=== PATIENT | female | born 1960 | race Caucasian/White ===

== ENCOUNTER → 2016-12-14 | Outpatient (CLI) | payer BC ==
[~2016-12-14] MED LIST: LRT5 PO; LXPUNK; ONDA4TAB46 PO
--- NOTE | 2016-12-15 15:02 | MAMMOGRAPHY REPORT ---
BILATERAL DIGITAL SCREENING MAMMOGRAM WITH CAD: 12/14/2016 CLINICAL HISTORY: Routine screening. Patient has no complaints. TECHNIQUE: Current study was also evaluated with a Computer Aided Detection (CAD) system. Bilatera l CC and MLO views were obtained. COMPARISON: Comparison is made to exams dated: 09/08/2015 mammogram, 06/29/2014 mammogram, 06/13/2013 mammogram, 06/12/2012 mammogram, 06/07/2011 mammogram, and 06/06/2010 mammogram - [facility]. BREAST COMPOSITION: There are scattered areas of fibroglandular density in both breasts. FINDINGS: No suspicious masses, calcifications, or areas of architectural distortion are noted in e ither breast. There has been no significant interval change compared to prior exams. IMPRESSION: ACR BI-RADS CATEGORY 1: NEGATIVE There is no mammographic evidence of malignancy. A 1 year screening mammogram is recommended. The p atient will receive written notification of the results. Approximately 10% of breast cancers are not detected with mammography. A negative mammographic repor t should not delay biopsy if a clinically suggestive mass is present. Teresa Irizarry M.D. ah/:12/14/2016 16:10:39 Sheet Metal Erector: Kajal RUVALCABA([employer])(M), [facility] letter sent: Normal 1/2 BI-RADS Code: ACR BI-RADS Category 1: Negative
== END | disposition home or self-care (01) ==
LOC: C.MAMM 15:38
PROVIDERS: ATTEND Family Medicine
DX: Z12.31 Encounter for screening mammogram for malignant neoplasm of breast (principal)

== ENCOUNTER 2022-03-16 15:23 | Inpatient (IN) ==
[2022-03-16] MEDS ORDERED: ONDANSETRON INJ 2 MG/ML 2 ML VIAL IV STA ×3 (15:40→18:35)
[2022-03-16] MEDS ORDERED: MoRPHine SULFATE 4 MG/ML 1 ML CARP\\VIAL IV STA ×2 (15:40→17:47)
[2022-03-16] MEDS ORDERED: SODIUM CHLORIDE 0.9% 1000ML 1,000 ML IV STA (15:40)
--- NOTE | 2022-03-16 16:15 | XRay Report ---
XR chest 1V portable CLINICAL HISTORY: Chest Pain TECHNIQUE: Single frontal radiograph of the chest was obtained. Comparison: None available at the time of this dictation. FINDINGS: No lines and tubes are seen. The cardiomediastinal silhouette is normal. The lungs are clear. No evid ence of pleural effusion or pneumothorax. IMPRESSION: No acute chest disease. ACT 112: Negative or not required by law. Electronically signed by: Mitch Yung M.D. 03/16/2022 4:13 PM
[2022-03-16 17:13] LABS: Basophils # (auto) 0.11 K/uL (0-0.2); Basophils % (auto) 0.5 %; Eosinophils # (auto) 0.05 K/uL (0-0.50); Eosinophils % (auto) 0.2 %; Hemoglobin 13.8 g/dl (12.0-16.0); Immature Granulocytes # (auto) 0.16 K/uL (0.00-0.02); Immature Granulocytes % (auto) 0.7 %; Lymphocytes # (auto) 1.76 K/uL (1.2-3.4); Lymphocytes % (auto) 8.2 %; Mean Corpuscular Hemoglobin 28.6 pg (25.0-34.0); Mean Corpuscular Hgb Conc 34.5 g/dL (32.0-36.0); Mean Corpuscular Volume 82.8 fL (80.0-100.0); Mean Platelet Volume 10.1 fL (9.4-12.3); Monocytes # (auto) 1.32 K/uL (0.24-0.82); Monocytes % (auto) 6.1 %; Neutrophils # (auto) 18.18 K/uL (1.4-6.5); Neutrophils % (auto) 84.3 %; Platelet Count 334 K/uL (130-400); RDW Coefficient of Variation 12.4 % (11.5-14.5); RDW Standard Deviation 37.7 fL (36.4-46.3); Red Blood Count 4.83 M/uL (3.93-5.22); White Blood Count 21.58 K/ul (4.8-10.8)
--- NOTE | 2022-03-16 17:28 | CT Scan Report ---
CT abd pelvis wo con CLINICAL HISTORY: R flank pain TECHNIQUE: Helical axial images of the abdomen and pelvis were obtained. Automated dose lowering tech niques and/or adjustment according to patient size were utilized for this exam. This exam was perfor med without intravenous contrast. CT DOSE: 572.13 mGy.cm COMPARISON: None available at the time of this dictation. FINDINGS: Lower chest: No acute abnormality Liver: Ginger configuration of the liver is noted. No discrete masses are seen. Gallbladder and biliary tree: No calcified gallstones. Normal caliber wall. No intra- or extrahepatic biliary ductal dilation. Pancreas: Unremarkable, no focal lesions. Spleen: Unremarkable. Adrenals: Unremarkable. Kidneys and ureters: Mild right hydronephrosis is seen. There is a stone in the proximal right ureter measuring 3 mm. Bladder: Limited evaluation due to underdistention. Reproductive organs: Unremarkable. Bowel: Diverticulosis is seen without evidence of diverticulitis. The appendix is normal. Lymph nodes Retroperitoneal: Unremarkable. Pelvic: Unremarkable. Mesenteric: Unremarkable. Peritoneum: Normal. Vessels: Unremarkable. Abdominal wall: A fat-containing umbilical hernia is seen. Bones: Unremarkable. IMPRESSION: Obstructive stone in the right ureter with associated hydronephrosis/hydroureter. ACT 112: Negative or not required by law. Electronically signed by: Mitch Yung M.D. 03/16/2022 5:27 PM
[2022-03-16 17:37] LABS: Albumin Globulin Ratio 1.4 (0.9-2); Albumin Level 4.3 gm/dl (3.4-5.0); BUN Creatinine Ratio 21.6 (10-20); Bilirubin,Total 0.4 mg/dl (0.2-1.0); Calcium 9.6 mg/dl (8.5-10.1); Creatinine Clr Calc Pharmacy 62.5 ml/min; Est GFR (African American) 69.2 ml/min; Est GFR (Non-African American) 59.7 ml/min; Potassium 3.9 mmol/L (3.5-5.1); Total Protein 7.3 gm/dl (6.0-8.3); Troponin I High Sensitivity 3.9 pg/ml (0-14)
[2022-03-16] MEDS ORDERED: cefTRIAXone SODIUM 2,000 MG/70 ML BAG IV STA (18:11)
[2022-03-16] MEDS ORDERED: MoRPHine SULFATE 10 MG/ML CARP/VIAL IV STA (18:35)
[2022-03-16] MEDS ORDERED: KETOROLAC TROMETHAMINE 15 MG/ML VIAL IV ONE (18:35)
--- NOTE | 2022-03-16 18:35 | Emergency Department Note ---
Impression & Plan Ureteral stone with hydronephrosis, Flank Pain, Leukocytosis ED Provider Note NAME: LEXI KHAN AGE: 61 SEX: F : 1960 ARRIVES VIA: Walk-In INFORMANT: Patient ED PROVIDER(S): Rachid Kevin DO CHIEF COMPLAINT: right flank pain HPI: Patient is a 61-year-old female who presents to the ER for right flank pain. She had an hours worth of pain yesterday and it resolved. Pain started back up today and has been constant all day and is significantly worse. Pain is currently 5 out of 10 after morphine. She does have nausea and vomiting. No dysuria, urgency, or frequency. Pain is focal in the right back and has not moved to the abdomen/anterior aspect. Denies any other exacerbating or remitting factors. ROS: See above HPI for pertinent positives & negatives. A total of 10 systems reviewed and were otherwise negative. PAST MEDICAL HISTORY:See Below PAST SURGICAL HISTORY:See Below FAMILY HISTORY:See Below SOCIAL HISTORY:See Below HOME MEDICATIONS:See Below ALLERGIES:See Below VITALS:See Below PHYSICAL EXAMINATION: GENERAL: Sitting up in bed, alert, Diaphoretic, uncomfortable, holding right flank EYE EXAM: normal conjunctiva. OROPHARYNX:Dry mucous membranes NECK: supple, no nuchal rigidity, no adenopathy, non-tender LUNGS: Clear to auscultation. Normal chest wall mechanics HEART: no murmurs, S1 normal and S2 normal ABDOMEN: abdomen soft, non-tender, normo-active bowel sounds, no masses, no rebound or guarding. BACK: Back is symmetrical on inspection and there is no deformity, no midline tenderness, no CVA tenderness. UPPER EXTREMITIES: upper extremities are grossly normal. LOWER EXTREMITIES: No pitting edema. NEURO EXAM: Normal sensorium, cranial nerves II-XII grossly intact, normal speech, no gross weakness of arms, no gross weakness of legs. MEDICAL DECISION MAKING: Is a 61-year-old female who presents ER for above-stated complaint.IV was established blood work was obtained. Labs show leukocytosis 21,000. No significant anemia. BMP with a CO2 of 19. Glucose slightly up at 120. LFTs we re unremarkable. Troponin was negative. Lipase normal. UA was clean with exception of epithelial cells. COVID was negative. CT abdomen pelvis does show hydronephrosis with a renal stone present. She was given multiple doses of IV narcotics was still having persistent pain was intermittently becoming hypoxic with narcotics. Discussed with the patient in regards to observation for pain control patient was agreeable. She was given IV antibiotics initially due to the white count right flank pain prior to the result of the UA. Triage Nursing notes reviewed. Limited review of prior medical records performed Vital Signs: reviewed and remarkable for no significant abnormalities Differential diagnosis: Differential diagnoses includes but is not limited to gastritis, peptic ulcer disease, GERD, gallbladder disease, pancreatitis, small bowel obstruction, acute coronary syndrome, pericarditis, ischemic bowel, irritable bowel disease, irr itable bowel syndrome, appendicitis, diverticulitis, malignancy, hernia, urinary tract infection, torsion, /ectopic (if female), perforation, trauma, infectious. ER treatment provided: See below Diagnostics interpreted by me: ECG: Sinus rhythm rate of 77 Normal axis No PVCs QTC 466 Cardiac Monitoring: An order was placed for continuous cardiac monitoring. The monitor shows a rate of 80 with sinus rhythm. Laboratory studies: As stated above and show below. Imaging studies: CT abdomen pelvis shows hydronephrosis with kidney stone Consultation(s): [facility] Procedures[facility] none Critical Care: None Past Med/Surg History Social History Smoking Status: Never smoker Preferred Language: [place] Islander Feels Safe at Home: Yes Allergies Allergies Allergy/AdvReac Type Severity Reaction Status Date / Time aspirin AdvReac Intermediate SHAKEY Verified 03/16/22 18:41 Home Meds Home Medications Medication Instructions Recorded Confirmed cholecalciferol (vitamin D3) 50 50 mcg PO DAILY 03/16/22 03/16/22 mcg (2,000 unit) capsule (Vitamin D3) lisinopril 10 mg tablet 10 mg PO DAILY 03/16/22 03/16/22 Results & Data (ED) Vital Signs Vital Signs - 24 hr 03/16/22 15:39 03/16/22 19:03 Temperature 36.6 C Temperature Source Temporal Artery Scan Pulse Rate 88 Pulse Rate [Right Finger] 80 Pulse Rhythm Regular Pulse Strength Normal Respiratory Rate 20 20 Respiratory Effort / Characteristics Non-Labored Spontaneous Respiratory Depth Normal Respiratory Pattern Regular Blood Pressure 160/94 H Blood Pressure [Right Arm] 153/94 H Blood Pressure Mean 116 Blood Pressure Mean [Right Arm] 113 Blood Pressure Position Sitting Pulse Oximetry 98 98 Oxygen Delivery Method Room Air Room Air Sepsis Recent Fever Within 48 Hours No Sepsis New/Unexplained Change in Mental Status No Sepsis Action Taken by Nursing No Action Required Laboratory Data Result diagrams: 03/16/22 16:55 03/16/22 16:55 Lab Results 03/16/22 03/16/22 03/16/22 Range/Units 16:04 16:55 16:55 WBC 21.58 H (4.8-10.8) K/ul RBC 4.83 (3.93-5.22) M/uL Hgb 13.8 (12.0-16.0) g/dl Hct 40.0 (34.1-44.9) % MCV 82.8 (80.0-100.0) fL MCH 28.6 (25.0-34.0) pg MCHC 34.5 (32.0-36.0) g/dL RDW Std Deviation 37.7 (36.4-46.3) fL RDW Coeff of Hollie 12.4 (11.5-14.5) % Plt Count 334 (130-400) K/uL MPV 10.1 (9.4-12.3) fL Immature Gran % (Auto) 0.7 % Neut % (Auto) 84.3 % Lymph % (Auto) 8.2 % Hyde % (Auto) 6.1 % Eos % (Auto) 0.2 % Baso % (Auto) 0.5 % Neut # (Auto) 18.18 H (1.4-6.5) K/uL Lymph # (Auto) 1.76 (1.2-3.4) K/uL Hyde # (Auto) 1.32 H (0.24-0.82) K/uL Eos # (Auto) 0.05 (0-0.50) K/uL Baso # (Auto) 0.11 (0-0.2) K/uL Immature Gran # (Auto) 0.16 H (0.00-0.02) K/uL Sodium 138 (136-145) mmol/L Potassium 3.9 (3.5-5.1) mmol/L Chloride 106 (98-107) mmol/L Carbon Dioxide 19 L (21-32) mmol/L Anion Gap 13 H (3-11) BUN 22 (6-23) mg/dl Creatinine 1.02 (0.6-1.2) mg/dl Est Cr Clr Drug Dosing 62.5 ml/min Est GFR ( Amer) 69.2 ml/min Est GFR (Non-Af Amer) 59.7 ml/min BUN/Creatinine Ratio 21.6 H (10-20) Glucose 119 H (70-99(Fasting)) mg/dl Calcium 9.6 (8.5-10.1) mg/dl Total Bilirubin 0.4 (0.2-1.0) mg/dl AST 17 (13-39) U/L ALT 12 (7-52) U/L Alkaline Phosphatase 139 H (34-104) U/L Troponin I High Sens 3.9 (0-14) pg/ml Total Protein 7.3 (6.0-8.3) gm/dl Albumin 4.3 (3.4-5.0) gm/dl Globulin 3.0 (2.5-4.0) gm/dl Albumin/Globulin Ratio 1.4 (0.9-2) Lipase Cancelled 14 Urine Color Urine Appearance (Clear) Urine pH (4.5-7.5) Ur Specific [place] (1.000-1.030) Urine Protein (Negative) Urine Glucose (UA) (Negative) Urine Ketones (Negative) Urine Blood (Negative) Urine Nitrite (Negative) Urine Bilirubin (Negative) Urine Urobilinogen (Negative) Ur Leukocyte Esterase (Negative) Urine WBC (Auto) (0-5) /hpf Urine RBC (Auto) (0-4) /hpf U Hyaline Cast (Auto) (0-5) /lpf U Epithel Cells (Auto) (0-5) /lpf Urine Bacteria (Auto) (Negative) Urine Crystals Calcium Oxalate Crystal (None Prsent) Urine Mucus (None Prsent) SARS-CoV-2, RNA, NAAT (NEGATIVE) 03/16/22 03/16/22 Range/Units 18:25 18:25 WBC (4.8-10.8) K/ul RBC (3.93-5.22) M/uL Hgb (12.0-16.0) g/dl Hct (34.1-44.9) % MCV (80.0-100.0) fL MCH (25.0-34.0) pg MCHC (32.0-36.0) g/dL RDW Std Deviation (36.4-46.3) fL RDW Coeff of Hollie (11.5-14.5) % Plt Count (130-400) K/uL MPV (9.4-12.3) fL Immature Gran % (Auto) % Neut % (Auto) % Lymph % (Auto) % Hyde % (Auto) % Eos % (Auto) % Baso % (Auto) % Neut # (Auto) (1.4-6.5) K/uL Lymph # (Auto) (1.2-3.4) K/uL Hyde # (Auto) (0.24-0.82) K/uL Eos # (Auto) (0-0.50) K/uL Baso # (Auto) (0-0.2) K/uL Immature Gran # (Auto) (0.00-0.02) K/uL Sodium (136-145) mmol/L Potassium (3.5-5.1) mmol/L Chloride (98-107) mmol/L Carbon Dioxide (21-32) mmol/L Anion Gap (3-11) BUN (6-23) mg/dl Creatinine (0.6-1.2) mg/dl Est Cr Clr Drug Dosing ml/min Est GFR ( Amer) ml/min Est GFR (Non-Af Amer) ml/min BUN/Creatinine Ratio (10-20) Glucose (70-99(Fasting)) mg/dl Calcium (8.5-10.1) mg/dl Total Bilirubin (0.2-1.0) mg/dl AST (13-39) U/L ALT (7-52) U/L Alkaline Phosphatase (34-104) U/L Troponin I High Sens (0-14) pg/ml Total Protein (6.0-8.3) gm/dl Albumin (3.4-5.0) gm/dl Globulin (2.5-4.0) gm/dl Albumin/Globulin Ratio (0.9-2) Lipase Urine Color Yellow Urine Appearance Clear (Clear) Urine pH 5.5 (4.5-7.5) Ur Specific [place] 1.029 (1.000-1.030) Urine Protein Negative (Negative) Urine Glucose (UA) Negative (Negative) Urine Ketones 1+ H (Negative) Urine Blood 1+ H (Negative) Urine Nitrite Negative (Negative) Urine Bilirubin Negative (Negative) Urine Urobilinogen Negative (Negative) Ur Leukocyte Esterase Negative (Negative) Urine WBC (Auto) 1-5 (0-5) /hpf Urine RBC (Auto) 0-4 (0-4) /hpf U Hyaline Cast (Auto) 1-5 (0-5) /lpf U Epithel Cells (Auto) 10-20 H (0-5) /lpf Urine Bacteria (Auto) Negative (Negative) Urine Crystals Not Reportable Calcium Oxalate Crystal Present A (None Prsent) Urine Mucus Present A (None Prsent) SARS-CoV-2, RNA, NAAT NEGATIVE (NEGATIVE) Administered Medications Sodium Chloride (Nss 1000ml) 1,000 mls @ 150 mls/hr IV .Q6H40M BULL Stop: 04/15/22 23:29 Last Admin: 03/16/22 23:40 Dose: 150 mls/hr Documented By: DIANDRA Discontinued Medications Sodium Chloride (Nss 1000ml) 1,000 mls @ 999 mls/hr IV .Q1H1M STA Stop: 03/16/22 16:40 Last Infusion: 03/16/22 19:05 Dose: 0 mls/hr Documented By: Admin: 03/16/22 16:54 Dose: 999 mls/hr Documented By: SHAHRIAR Ceftriaxone Sodium (Rocephin) 2,000 mg in 70 mls @ 140 mls/hr IV NOW STA Stop: 03/16/22 18:40 Last Infusion: 03/16/22 19:02 Dose: 0 mls/hr Documented By: Admin: 03/16/22 18:23 Dose: 140 mls/hr Documented By: Ketorolac Tromethamine (Ketorolac Tromethamine 15 Mg/Ml Vial) 15 mg IV NOW ONE Stop: 03/16/22 18:36 Last Admin: 03/16/22 18:45 Dose: 15 mg Documented By: AB Morphine Sulfate (Morphine Sulfate 4 Mg/Ml 1 Ml Carp\Vial) 4 mg IV NOW STA Stop: 03/16/22 15:41 Last Admin: 03/16/22 16:50 Dose: 4 mg Documented By: SHAHRIAR Morphine Sulfate (Morphine Sulfate 4 Mg/Ml 1 Ml Carp\Vial) 4 mg IV NOW STA Stop: 03/16/22 17:48 Last Admin: 03/16/22 17:53 Dose: 4 mg Documented By: SLB Morphine Sulfate (Morphine Sulfate 10 Mg/Ml Carp/Vial) 6 mg IV NOW STA Stop: 03/16/22 18:36 Last Admin: 03/16/22 18:46 Dose: 6 mg Documented By: AB Ondansetron HCl (Ondansetron Inj 2 Mg/Ml 2 Ml Vial) 4 mg IV NOW STA Stop: 03/16/22 15:41 Last Admin: 03/16/22 16:50 Dose: 4 mg Documented By: SLB Ondansetron HCl (Ondansetron Inj 2 Mg/Ml 2 Ml Vial) 4 mg IV NOW STA Stop: 03/16/22 17:48 Last Admin: 03/16/22 17:53 Dose: 4 mg Documented By: SLB Ondansetron HCl (Ondansetron Inj 2 Mg/Ml 2 Ml Vial) 4 mg IV NOW STA Stop: 03/16/22 18:36 Last Admin: 03/16/22 18:46 Dose: 4 mg Documented By: AB Imaging Data Radiologist's Impression: Abdomen/Pelvis CT 03/16/22 15:40 CT abd pelvis wo con CLINICAL HISTORY: R flank pain TECHNIQUE: Helical axial images of the abdomen and pelvis were obtained. Auto mated dose lowering techniques and/or adjustment according to patient size were utilized for this exam. This exam was performed without intravenous contrast. CT DOSE: 572.13 mGy.cm COMPARISON: None available at the time of this dictation. FINDINGS: Lower chest: No acute abnormality Liver: Ginger configuration of the liver is noted. No discrete masses are seen. Gallbladder and biliary tree: No calcified gallstones. Normal caliber wall. No intra- or extrahepatic biliary ductal dilation. Pancreas: Unremarkable, no focal lesions. Spleen: Unremarkable. Adrenals: Unremarkable. Kidneys and ureters: Mild right hydronephrosis is seen. There is a stone in the proximal right ureter measuring 3 mm. Bladder: Limited evaluation due to underdistention. Reproductive organs: Unremarkable. Bowel: Diverticulosis is seen without evidence of diverticulitis. The appendix is normal. Lymph nodes Retroperitoneal: Unremarkable. Pelvic: Unremarkable. Mesenteric: Unremarkable. Peritoneum: Normal. Vessels: Unremarkable. Abdominal wall: A fat-containing umbilical hernia is seen. Bones: Unremarkable. IMPRESSION: Obstructive stone in the right ureter with associated h ydronephrosis/hydroureter. ACT 112: Negative or not required by law. Electronically signed by: Mitch Yung M.D. 03/16/2022 5:27 PM Chest X-Ray 03/16/22 15:40 XR chest 1V portable CLINICAL HISTORY: Chest Pain TECHNIQUE: Single frontal radiograph of the chest was obtained. Comparison: None available at the time of this dictation. FINDINGS: No lines and tubes are seen. The cardiomediastinal silhouette is normal. The lungs are clear. No evidence of pleural effusion or pneumothorax. IMPRESSION: No acute chest disease. ACT 112: Negative or not required by law. Electronically signed by: Mitch Yung M.D. 03/16/2022 4:13 PM Discharge Plan Visit Data Chief Complaint: Flank Pain Stated Complaint: BACK PAIN ED Provider: Rachid Kevin Discharge Problem: Ureteral stone with hydronephrosis, Flank Pain, Leukocytosis Patient Disposition: Admitted As Inpatient Discharge Instructions Interventions: ED Discharge Assessment Last Done: 03/16/22 22:26
[2022-03-16 19:23] LABS: Appearance Urine Clear (Clear); Bacteria Urine Automated Negative (Negative); Bilirubin Urine Negative (Negative); Blood Urine 1+ (Negative); Color Urine Yellow; Glucose Urine UA Negative (Negative); Ketones Urine 1+ (Negative); Leukocyte Esterase Urine Negative (Negative); Nitrite Urine Negative (Negative); Protein Urine Negative (Negative); RBC Urine Automated 0-4 /hpf (0-4); Specific Gravity Urine 1.029 (1.000-1.030); Urobilinogen Urine Negative (Negative); pH Urine 5.5 (4.5-7.5)
[2022-03-16 19:48] LABS: Calcium Oxalate Crystals Urine Present (None Prsent); Mucus Urine Present (None Prsent)
--- NOTE | 2022-03-16 20:24 | History & Physical Report ---
Date of Service March 16, 2022 Assessment & Plan (1) Ureteral stone with hydronephrosis: Plan: RIGHT URETERAL STONE WITH HYDRONEPHROSIS CT abd/pelvis: Kidneys and ureters: Mild right hydronephrosis is seen. There is a stone in the proximal right ureter measuring 3 mm. IMPRESSION: Obstructive stone in the right ureter with associated hydronephrosis/hydroureter. Crea 1.02 pain control with Tylenol q8h flaco, PRN Morphine and Toradol IV Miralax daily IV NSS at 150cc/hr Flomax Urology consulted NPO after midnight UA: no signs of infection Urine culture: pending HYPERTENSION continue usual Lisinoprilo 10mg po daily DVT prophylaxis SCDs Disposition anticipate d/c home when medically stable History of Present Illness Chief Complaint: R sided flank, abdominal pain Primary Care Provider: Dylon Freeman DO 61 year old female with history of HTN presenting with R sided abdominal/flank pain x 2 days. Patient was doing well until 2 days ago when she started to have R sided abdominal, flank pain associated with weakness, no fever/chills, hematuria/dysuria. Yesterday, she had severe painful episodes, tried to take Advil with minimal relief. Today, pain worsened prompting patient to go to the ER. CT abd/pelvis: 3mm R proximal ureter stone WBC 21k Crea 1.02 Patient required multiple doses of morphine, a dose of Toradol, and was also given Ceftriaxone IV. On exam, patient reports pain is finally settling down. no chest pain, dyspnea, palpitations, dizziness no other symptoms Allergies Allergy/AdvReac Type Severity Reaction Status Date / Time aspirin AdvReac Intermediate SHAKEY Verified 03/16/22 18:41 Home Medications Medication Instructions Recorded Confirmed Type cholecalciferol (vitamin D3) 50 50 mcg PO DAILY 03/16/22 03/16/22 History mcg (2,000 unit) capsule (Vitamin D3) lisinopril 10 mg tablet 10 mg PO DAILY 03/16/22 03/16/22 History Past Med/Surg History Social History Smoking Status: Never smoker Preferred Language: Liberian Feels Safe at Home: Yes Physical Exam Physical Exam: all noted and negative except for above Results & Data Results & Data ([facility]) Vital Signs (Past 12 Hours) Vital Signs Temp Pulse Pulse Resp BP BP Pulse Ox 03/16/22 19:03 80 20 153/94 H 98 03/16/22 15:39 36.6 C 88 20 160/94 H 98 O2 Del Method 03/16/22 19:03 Room Air 03/16/22 15:39 Room Air all noted and reviewed including below Code Status & VTE Plan VTE Prophylaxis Plan VTE Prophylaxis will be ordered: Yes
[2022-03-16] MEDS ORDERED: MoRPHine SULFATE 4 MG/ML 1 ML CARP\\VIAL IV PRN (22:58)
[2022-03-16] MEDS: SODIUM CHLORIDE 0.9% 1000ML 1,000 ML IV SCH (23:40)
[2022-03-17] MEDS: PROMETHAZINE HCL 12.5 MG in SODIUM CHLORIDE 0.9% 50 ML IV PRN ×2 (00:02→11:10)
[2022-03-17] MEDS: ACETAMINOPHEN 500 MG TAB PO SCH ×3 (00:05→14:04)
[2022-03-17] MEDS: TAMSULOSIN HCL 0.4 MG CAP PO SCH ×2 (00:06→20:53)
[2022-03-17 06:23] LABS: Basophils # (auto) 0.02 K/uL (0-0.2); Basophils % (auto) 0.1 %; Eosinophils # (auto) 0.01 K/uL (0-0.50); Eosinophils % (auto) 0.1 %; Hematocrit (blood only) 35.8 % (34.1-44.9); Hemoglobin 12.1 g/dl (12.0-16.0); Immature Granulocytes # (auto) 0.07 K/uL (0.00-0.02); Immature Granulocytes % (auto) 0.5 %; Lymphocytes # (auto) 1.13 K/uL (1.2-3.4); Lymphocytes % (auto) 8.2 %; Mean Corpuscular Hemoglobin 28.5 pg (25.0-34.0); Mean Corpuscular Hgb Conc 33.8 g/dL (32.0-36.0); Mean Corpuscular Volume 84.2 fL (80.0-100.0); Mean Platelet Volume 10.5 fL (9.4-12.3); Monocytes # (auto) 0.67 K/uL (0.24-0.82); Monocytes % (auto) 4.8 %; Neutrophils # (auto) 11.93 K/uL (1.4-6.5); Neutrophils % (auto) 86.3 %; Platelet Count 282 K/uL (130-400); RDW Coefficient of Variation 12.6 % (11.5-14.5); RDW Standard Deviation 38.1 fL (36.4-46.3); Red Blood Count 4.25 M/uL (3.93-5.22); White Blood Count 13.83 K/ul (4.8-10.8)
[2022-03-17] MEDS: SODIUM CHLORIDE 0.9% 1000ML 1,000 ML IV SCH ×2 (06:35→16:45)
[2022-03-17 07:22] LABS: Anion Gap 9 (3-11); BUN Creatinine Ratio 21.6 (10-20); Blood Urea Nitrogen 21 mg/dl (6-23); Calcium 8.3 mg/dl (8.5-10.1); Carbon Dioxide 20 mmol/L (21-32); Chloride 107 mmol/L (98-107); Est GFR (African American) 73.6 ml/min; Est GFR (Non-African American) 63.5 ml/min; Glucose 113 mg/dl (70-99(Fasting)); Sodium 136 mmol/L (136-145)
[2022-03-17] MEDS: lisinopril 10 MG TAB PO SCH (09:15)
[2022-03-17] MEDS: POLYETHYLENE (MIRALAX) 17 GM PACK PO SCH (09:15)
--- NOTE | 2022-03-17 10:28 | XRay Report ---
KUB CLINICAL HISTORY: Right ureteral calculus. COMPARISON STUDY: CT of the abdomen and pelvis March 16, 2022. FINDINGS: No evidence for a bowel obstruction. 3 mm right ureteral calculus on CT of March 16, 2022 is not identified although may be occult/obscured by numerous phleboliths within the pelvis. IMPRESSION: 3 mm right ureteral calculus on CT of March 16, 2022 not clearly identified although ma y be occult/obscured by numerous phleboliths ACT 112: Negative or not required by law. Electronically signed by: Brendan Mccallum M.D. 03/17/2022 10:26 AM
--- NOTE | 2022-03-17 10:52 | Urology Consultation ---
Date of Consultation March 17, 2022 Assessment & Plan (1) Ureteral stone with hydronephrosis: (2) Flank Pain: Plan 3 mm right ureteral calculus actively passing through the ureter She presented with renal colic KUB today to try to assess if there has been any distal migration since arrivaldifficult to completely determine but I do not see a stone in the proximal ureter implying that there may have been some distal migration already Patient had been well controlled and feeling fairly good this morning but after she returned from her KUB she began to experience another wave of severe renal colic We will plan for an immediate intervention with cystoscopy, right ureteral stent placement as she will have to follow-up as an outpatient for definitive stone treatment at a later date History of Present Illness Attending Physician: Abida Norton, History of Present Illness Healthy 61-year-old female who presents to the emergency room with severe right renal colicnausea, vomiting, pain Started on Sunday and progressed through yesterday evening She ultimately was admitted and had a CT which shows a 3 mm right proximal ureteral calculus She is hemodynamically stable and labs are all appropriate From the time of arrival in the emergency room her pain has been well controlled She has never had a stone in the past Although she feels well now she is anxious about potential recurrent symptoms A KUB was performed this morningit is difficult to assess location of the stone because of numerous pelvic phleboliths but I do not appreciate a stone in the area of the proximal ureter implying some distal migration already Allergies Allergy/AdvReac Type Severity Reaction Status Date / Time aspirin AdvReac Intermediate SHAKEY Verified 03/16/22 18:41 Home Medications Medication Instructions Recorded Confirmed Type cholecalciferol (vitamin D3) 50 50 mcg PO DAILY 03/16/22 03/16/22 History mcg (2,000 unit) capsule (Vitamin D3) lisinopril 10 mg tablet 10 mg PO DAILY 03/16/22 03/16/22 History Patient History Social History Smoking Status: Never smoker Second Hand Exposure: No; Do You Dip or Chew Tobacco: No; Tobacco Cessation Education Requested by Patient: No Hx Alcohol Use: Yes Alcohol type: beer and wine Hx Substance Use: No Preferred Language: Tongan Communication Ability: Effective 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 Beliefs That Will Affect Care: None Current Living Situation: Spouse Other Information That Helps Us Care for You: No Feels Safe at Home: Yes Safety Concerns: Feels Safe At This Time Assistive Devices: None Review of Systems Constitutional: no fever, no chills and no fatigue Eyes: no worsening vision Ear, Nose, Mouth, Throat: no facial pain and no pain with swallowing Respiratory: no cough and no dyspnea Cardiovascular: no chest pain and no palpitations Gastrointestinal: + abdominal pain, + nausea and + vomiting Genitourinary: no dysuria, no difficulty urinating, no urinary frequency and no hematuria kidney stone Musculoskeletal: no back pain Integumentary: no rash and no urticaria Neurologic: no gait abnormality and no unsteadiness Psychiatric: no behavioral changes and no depression Endocrine: no fatigue Physical Exam Constitutional: well developed and well nourished Respiratory: no respiratory distress Cardiovascular: Extremities: no pedal edema Gastrointestinal (Abdomen): Inspection/Auscultation: abdomen normal to inspection soft, non-tender Results & Data ([facility]) Vital Signs (Past 12 Hours) Vital Signs Temp Pulse Resp BP Pulse Ox O2 Del Method 03/17/22 07:23 36.8 C 78 16 127/72 97 Room Air 03/16/22 23:23 36.3 C L 62 18 159/93 H 94 Room Air PG Care Time/CCT Total # of Minutes Spent Total Time Spent with Patient: Total time spent is greater than 50% in coordination of care (as documented) at patient's floor/unit and/or counseling patient: Coding Level of Care Code 26274 Inpt Consult Level 4 Diagnoses Ureteral stone with hydronephrosis N13.2 Flank Pain R10.9
[2022-03-17] MEDS: KETOROLAC 30 MG/ML VIAL IV PRN (11:02)
[2022-03-17] MEDS ORDERED: LIDOCAINE 2% MPF LOCAL 5 ML VIAL INFIL ONE (11:16)
[2022-03-17] MEDS ORDERED: fentaNYL citrate 100 MCG/2 ML VIAL ONE (11:16)
[2022-03-17] MEDS ORDERED: ONDANSETRON INJ 2 MG/ML 2 ML VIAL ONE (11:16)
[2022-03-17] MEDS ORDERED: PROPOFOL IV EMULSION 10 MG/ML 20 ML VIAL IV ONE ×2 (11:16→11:57)
[2022-03-17] MEDS ORDERED: DEXAMETHASONE SOD INJ 4 MG/ML VIAL ONE ×2 (11:16)
[2022-03-17] MEDS: CIPROFLOXACIN / D5W 400 MG/200 ML BAG IV SCH (11:46)
--- NOTE | 2022-03-17 11:47 | Anesthesiology Consultation ---
Date of Service March 17, 2022 Assessment & Plan (1) Encounter for pre-operative examination: Chart Review Chart Review: Acceptable Risk for Surgery and Patient NOT seen in Pre Admission Testing Consults Requested none History Surgery Operation Date: 03/17/22 14:30 Proposed Procedures p Cystoscopy Right Stent Placement - Pipe Brown MD Height/Weight Height: 5 ft 4 in Weight: 87.5 kg Allergies Allergy/AdvReac Type Severity Reaction Status Date / Time aspirin AdvReac Intermediate SHAKEY Verified 03/16/22 18:41 Medications Home Medications Medication Instructions Recorded Confirmed Last Taken cholecalciferol (vitamin D3) 50 50 mcg PO DAILY 03/16/22 03/16/22 03/16/22 mcg (2,000 unit) capsule (Vitamin D3) lisinopril 10 mg tablet 10 mg PO DAILY 03/16/22 03/16/22 03/16/22 Active Medications Generic Name Dose Route Start Last Admin Trade Name Freq PRN Reason Stop Dose Admin Acetaminophen 1,000 mg 03/16/22 22:58 03/17/22 05:55 Acetaminophen 500 Mg Tab PO 04/15/22 22:57 1,000 mg Q8 BULL Administration Sodium Chloride 1,000 mls @ 150 mls/hr 03/16/22 23:30 03/17/22 11:36 Nss 1000ml IV 04/15/22 23:29 0 mls/hr .Q6H40M BULL Infusion Promethazine HCl 12.5 mg/ 50.5 mls @ 202 mls/hr 03/16/22 23:17 03/17/22 11:35 Sodium Chloride IV 04/15/22 23:16 Infused Q6H PRN Infusion Nausea And Vomiting Ketorolac Tromethamine 30 mg 03/16/22 22:58 03/17/22 11:02 Ketorolac 30 Mg/Ml Vial IV 03/21/22 22:57 30 mg Q6H PRN Administration MILD TO MODERATE PAIN 1-7 Lisinopril 10 mg 03/17/22 09:00 03/17/22 09:15 Lisinopril 10 Mg Tab PO 04/16/22 08:59 Not Given DAILY BULL Polyethylene Glycol 17 gm 03/17/22 09:00 03/17/22 09:15 Polyethylene (Miralax) 17 Gm Pack PO 04/16/22 08:59 Not Given DAILY BULL Tamsulosin HCl 0.4 mg 03/16/22 22:58 03/17/22 00:06 Tamsulosin Hcl 0.4 Mg Cap PO 04/15/22 22:57 0.4 mg HS BULL Administration NPO Date Last Intake of Fluids: 03/16/22 Time Last Intake of Fluids: 23:00 Last Intake of Fluids Comment: sip 0600 w/med Date Last Intake of Solids: 03/16/22 Time Last Intake of Solids: 12:00 Past Medical History Medical History Hypertension Ureteral stone with hydronephrosis Social History Smoking Status: Never smoker Do You Dip or Chew Tobacco: No Hx Alcohol Use: Yes Alcohol type: beer and wine alcohol intake frequency: holidays/special occasions only Hx Substance Use: No substance use type: does not use Physical Exam Vital Signs Last Vital Signs Temp 36.5 C 03/17/22 11:25 Pulse 76 03/17/22 11:25 Resp 18 03/17/22 11:25 BP 113/66 03/17/22 11:25 Pulse Ox 98 03/17/22 11:25 O2 Del Method 03/17/22 07:23 Testing Laboratory Results 03/17/22 05:42 03/17/22 07:31 Urine Color Yellow 03/16/22 18:25 Urine Appearance Clear (Clear) 03/16/22 18:25 Urine pH 5.5 (4.5-7.5) 03/16/22 18:25 Ur Specific [place] 1.029 (1.000-1.030) 03/16/22 18:25 Urine Protein Negative (Negative) 03/16/22 18:25 Urine Glucose (UA) Negative (Negative) 03/16/22 18:25 Urine Ketones 1+ (Negative) H 03/16/22 18:25 Urine Nitrite Negative (Negative) 03/16/22 18:25 Ur Leukocyte Esterase Negative (Negative) 03/16/22 18:25 Urine WBC (Auto) 1-5 /hpf (0-5) 03/16/22 18:25 Urine RBC (Auto) 0-4 /hpf (0-4) 03/16/22 18:25 U Hyaline Cast (Auto) 1-5 /lpf (0-5) 03/16/22 18:25 U Epithel Cells (Auto) 10-20 /lpf (0-5) H 03/16/22 18:25 Urine Bacteria (Auto) Negative (Negative) 03/16/22 18:25
--- NOTE | 2022-03-17 12:18 | Operative Report ---
PG Post Operative Report Pre & Post Diagnosis Operation Date: 03/17/22 14:30 Pre-Op Diagnosis: Right Ureteral Stone Post-Op Diagnosis: Right Ureteral Stone I identified the patient and participated in the time-out.: Yes Procedure Operation Date: 03/17/22 14:30 Actual Procedures p Cystoscopy Right Stent Placement(Right) - Pipe Brown MD Surgeon Pipe Brown MD Stud Master/Mistress none Estimated Blood Loss 0 Findings Consistent with Post-Op Diagnosis Specimens none Description of Procedure The patient was identified in the preoperative holding area, appropriate informed consents were reviewed and completed and the patient was transferred to the operative suite. Upon arrival, appropriate antibiotics and anesthesia were administered and the patient was placed in dorsal lithotomy position and prepped and draped in sterile fashion. To be in the case a past 22 Upper [place] cystoscope, inspection of bladder was conducted. There were no abnormalities. A wire was introduced into the right ureteral orifice and advanced to the kidney. A ureteral stent was placed over this wire. It was a 6 [place] by 24 cm. There was good curl in the kidney as well as the bladder. There is drainage of slightly purulent urine through and around the stent. The case was concluded and she was reversed of anesthesia and taken to the recovery room in stable condition. I attest to the content of the Intraoperative Record and any orders documented therein. Any exceptions are noted below.
--- NOTE | 2022-03-17 12:29 | Anesthesiology Progress Note ---
Date of Service March 17, 2022 Anesthesia Post Procedure Vital Signs Vital Signs: Temp Pulse Pulse Pulse Resp BP BP 03/17/22 12:20 77 14 111/65 03/17/22 12:14 36.3 C L 90 23 112/65 03/17/22 11:25 36.5 C 76 18 113/66 03/17/22 07:23 36.8 C 78 16 127/72 03/16/22 23:23 36.3 C L 62 18 159/93 H 03/16/22 22:17 66 20 140/85 03/16/22 20:43 82 20 142/92 H 03/16/22 19:03 80 20 153/94 H 03/16/22 15:39 36.6 C 88 20 160/94 H Pulse Ox O2 Del Method O2 Flow Rate 03/17/22 12:20 100 Oxymask 4 03/17/22 12:14 96 Oxymask 4 03/17/22 11:25 98 03/17/22 07:23 97 Room Air 03/16/22 23:23 94 Room Air 03/16/22 22:17 98 03/16/22 20:43 98 Room Air 03/16/22 19:03 98 Room Air 03/16/22 15:39 98 Room Air Transfer of Care Handoff Completed per policy Notes Mental Status: alert / awake / arousable Patient Amnestic to Procedure: Yes Nausea / Vomiting: adequately controlled Pain: adequately controlled Airway Patency, RR, SpO2: stable & adequate BP & HR: stable & adequate Hydration State: stable & adequate Anesthetic Complications: no major complications apparent and Pt Satisfied with anesthetic care
--- NOTE | 2022-03-17 13:39 | Fluoroscopy Report ---
FL KUB CLINICAL HISTORY: RIGHT SIDED URINARY STENT PLACEMENT TECHNIQUE: 1 views were obtained with the C-arm in the OR with the above procedure. Total fluoroscopy time was 2.7 seconds. Total skin dose was 1.71 mGy. Comparison: None available at the time of this dictation. FINDINGS/IMPRESSION: Intraoperative images were obtained of right urinary stent placement. Please correlate with intraoperative fluoroscopy and operative report. ACT 112: Negative or not required by law. Electronically signed by: Mitch Yung M.D. 03/17/2022 1:38 PM
[2022-03-17] MEDS ORDERED: ACETAMINOPHEN 500 MG TAB PO PRN (16:33)
--- NOTE | 2022-03-17 17:23 | Hospitalist Progress Note ---
Date of Service March 17, 2022 Assessment & Plan (1) Ureteral stone with hydronephrosis: Plan: RIGHT URETERAL STONE WITH HYDRONEPHROSIS Crea 1.02 IVF/Flomax/pain control s/p cystoscopy with stent placement this safternoon. Monitor clinical improvement overnight UA: no signs of infection Urine culture: pending HYPERTENSION chonic, at goal. continue usual Lisinopril 10mg po daily DVT prophylaxis SCDs Abida Norton DO [facility] Hospitalist Admission and Anticipated Discharge Date Admission Date: March 16, 2022 Subjective 61-year-old female admitted for renal colic, nausea, vomiting, pain CT which shows a 3 mm right proximal ureteral calculus She did well overnight, however, this morning she developed severe pain Cystoscopy with stent placement this afternoon. Post-procedure she is doing much better with resolution of flank pain. She has some hematuria Doing well overall Tolerated food post operatively. Review of Systems Review of Systems: All systems were reviewed and negative except as indicated on subjective above. Physical Exam Physical Exam: CONSTITUTIONAL: WNWD, vitals as above, generally well- appearing, NAD EYES: normal conjunctivae, no scleral icterus, ENT: external ear and nose normal, MMM NECK: trachea midline, RESPIRATORY: clear to auscultation bilaterally, no crackles, rales or wheezes, normal respiratory effort CARDIOVASCULAR: regular rate and rhythm, S1 and 2 heard without murmurs, gallops or rubs, no JVD, no peripheral edema, CHEST: inspection of chest was normal GASTROINTESTINAL: normal bowel sounds, soft, nontender, no guarding, no CVA tenderness MUSCULOSKELETAL: strength 5/5 throughout, head is normocephalic and atraumatic SKIN: warm and dry, NEUROLOGIC: CN 2-12 grossly intact, no sensory deficit, normal cognition, normal speech, no tremor PSYCHIATRIC: alert cooperative and oriented to person, place and time. Results & Data Results & Data ([facility]) Vital Signs (Past 12 Hours) Vital Signs Temp Pulse Pulse Pulse Resp BP Pulse Ox 03/17/22 15:35 36.9 C 84 16 122/75 98 03/17/22 13:35 36.7 C 86 16 142/82 H 96 03/17/22 13:05 36.9 C 84 16 115/71 92 03/17/22 12:35 36.9 C 79 16 115/69 95 03/17/22 12:30 36.4 C L 78 14 116/66 97 03/17/22 12:20 77 14 111/65 100 03/17/22 12:14 36.3 C L 90 23 112/65 96 03/17/22 11:25 36.5 C 76 18 113/66 98 03/17/22 07:23 36.8 C 78 16 127/72 97 O2 Del Method O2 Flow Rate 03/17/22 15:35 Room Air 03/17/22 13:35 Room Air 03/17/22 13:05 Room Air 03/17/22 12:35 Room Air 03/17/22 12:30 Room Air 03/17/22 12:20 Oxymask 4 03/17/22 12:14 Oxymask 4 03/17/22 11:25 03/17/22 07:23 Room Air Laboratory Results Short CBC 03/17/22 Range/Units 05:42 WBC 13.83 H (4.8-10.8) K/ul Hgb 12.1 (12.0-16.0) g/dl Hct 35.8 (34.1-44.9) % Plt Count 282 (130-400) K/uL BMP 03/16/22 03/17/22 03/17/22 16:55 05:42 07:31 Sodium 138 136 Potassium 3.9 TNP 4.1 Chloride 106 107 Carbon Dioxide 19 L 20 L BUN 22 21 Creatinine 1.02 0.97 Glucose 119 H 113 H Calcium 9.6 8.3 L Liver Function 03/16/22 Range/Units 16:55 Total Bilirubin 0.4 (0.2-1.0) mg/dl AST 17 (13-39) U/L ALT 12 (7-52) U/L Alkaline Phosphatase 139 H (34-104) U/L Albumin 4.3 (3.4-5.0) gm/dl Urine 03/16/22 Range/Units 18:25 Urine Color Yellow Urine Appearance Clear (Clear) Urine pH 5.5 (4.5-7.5) Ur Specific [place] 1.029 (1.000-1.030) Urine Protein Negative (Negative) Urine Glucose (UA) Negative (Negative) Diagnostic Findings KUB X-Ray 03/17/22 09:12 KUB CLINICAL HISTORY: Right ureteral calculus. COMPARISON STUDY: CT of the abdomen and pelvis March 16, 2022. FINDINGS: No evidence for a bowel obstruction. 3 mm right ureteral calculus on CT of March 16, 2022 is not identified although may be occult/obscured by numerous phleboliths within the pelvis. IMPRESSION: 3 mm right ureteral calculus on CT of March 16, 2022 not clearly identified although may be occult/obscured by numerous phleboliths ACT 112: Negative or not required by law. Electronically signed by: Brendan Mccallum M.D. 03/17/2022 10:26 AM Abdomen Fluoroscopy 03/17/22 11:32 FL KUB CLINICAL HISTORY: RIGHT SIDED URINARY STENT PLACEMENT TECHNIQUE: 1 views were obtained with the C-arm in the OR with the above procedure. Total fluoroscopy time was 2.7 seconds. Total skin dose was 1.71 mGy. Comparison: None available at the time of this dictation. FINDINGS/IMPRESSION: Intraoperative images were obtained of right urinary stent placement. Please correlate with intraoperative fluoroscopy and operative report. ACT 112: Negative or not required by law. Electronically signed by: Mitch Yung M.D. 03/17/2022 1:38 PM Medications Administered Current Inpatient Medications Acetaminophen (Acetaminophen 500 Mg Tab) 1,000 mg PO Q8 PRN PRN Reason: pain/fever Stop: 04/15/22 22:57 Promethazine HCl 12.5 mg/ (Sodium Chloride) 50.5 mls @ 202 mls/hr IV Q6H PRN PRN Reason: Nausea And Vomiting Stop: 04/15/22 23:16 Last Infusion: 03/17/22 11:35 Dose: Infused Ciprofloxacin (Cipro / D5w) 400 mg in 200 mls @ 100 mls/hr IV PREOP BULL; Protocol Stop: 03/18/22 11:04 Last Infusion: 03/17/22 14:05 Dose: Infused Ketorolac Tromethamine (Ketorolac 30 Mg/Ml Vial) 30 mg IV Q6H PRN PRN Reason: MILD TO MODERATE PAIN 1-7 Stop: 03/21/22 22:57 Last Admin: 03/17/22 11:02 Dose: 30 mg Lisinopril (Lisinopril 10 Mg Tab) 10 mg PO DAILY [facility] Stop: 04/16/22 08:59 Last Admin: 03/17/22 09:15 Dose: Not Given Polyethylene Glycol (Polyethylene (Miralax) 17 Gm Pack) 17 gm PO DAILY BULL Stop: 04/16/22 08:59 Last Admin: 03/17/22 09:15 Dose: Not Given Tamsulosin HCl (Tamsulosin Hcl 0.4 Mg Cap) 0.4 mg PO BULL Stop: 04/15/22 22:57 Last Admin: 03/17/22 00:06 Dose: 0.4 mg
[2022-03-18] MEDS: KETOROLAC 30 MG/ML VIAL IV PRN (04:10)
--- NOTE | 2022-03-18 05:55 | Electrocardiogram Report ---
Test Reason : Blood Pressure : / mmHG Vent. Rate : 077 BPM Atrial Rate : 077 BPM P-R Int : 150 ms QRS Dur : 088 ms QT Int : 412 ms P-R-T Axes : 040 003 028 degrees QTc Int : 466 ms Normal sinus rhythm Possible Inferior infarct No previous ECGs available Confirmed by Alessio Trejo ([id number]) on 03/18/2022 5:55:20 AM Referred By: REFERRED SELF Confirmed By:Alessio Trejo
[2022-03-18 07:31] LABS: Basophils # (auto) 0.04 K/uL (0-0.2); Basophils % (auto) 0.4 %; Eosinophils # (auto) 0.08 K/uL (0-0.50); Eosinophils % (auto) 0.9 %; Hematocrit (blood only) 34.6 % (34.1-44.9); Hemoglobin 11.6 g/dl (12.0-16.0); Immature Granulocytes # (auto) 0.04 K/uL (0.00-0.02); Immature Granulocytes % (auto) 0.4 %; Lymphocytes % (auto) 23.3 %; Mean Corpuscular Hemoglobin 28.2 pg (25.0-34.0); Mean Corpuscular Hgb Conc 33.5 g/dL (32.0-36.0); Mean Platelet Volume 10.1 fL (9.4-12.3); Monocytes # (auto) 0.59 K/uL (0.24-0.82); Monocytes % (auto) 6.6 %; Neutrophils # (auto) 6.15 K/uL (1.4-6.5); Neutrophils % (auto) 68.4 %; Platelet Count 231 K/uL (130-400); RDW Coefficient of Variation 12.8 % (11.5-14.5); RDW Standard Deviation 39.1 fL (36.4-46.3); Red Blood Count 4.12 M/uL (3.93-5.22)
[2022-03-18] MEDS: POLYETHYLENE (MIRALAX) 17 GM PACK PO SCH (07:34)
[2022-03-18] MEDS: lisinopril 10 MG TAB PO SCH (07:36)
[2022-03-18] MEDS ORDERED: SODIUM CHLORIDE 0.65% NA SOLN 45 ML (OCEAN) ONE (07:38)
[2022-03-18 07:49] LABS: BUN Creatinine Ratio 24.3 (10-20); Calcium 8.4 mg/dl (8.5-10.1); Creatinine Clr Calc Pharmacy 86.6 ml/min; Est GFR (African American) 102.1 ml/min; Est GFR (Non-African American) 88.1 ml/min; Potassium 3.7 mmol/L (3.5-5.1)
[2022-03-18] MEDS: CIPROFLOXACIN / D5W 400 MG/200 ML BAG IV SCH (08:56)
--- NOTE | 2022-03-18 09:10 | Discharge Summary ---
Date of Service March 18, 2022 Admission HPI Per Admitting Provider 61 year old female with history of HTN presenting with R sided abdominal/flank pain x 2 days. Patient was doing well until 2 days ago when she started to have R sided abdominal, flank pain associated with weakness, no fever/chills, hematuria/dysuria. Yesterday, she had severe painful episodes, tried to take Advil with minimal relief. Today, pain worsened prompting patient to go to the ER. CT abd/pelvis: 3mm R proximal ureter stone WBC 21k Crea 1.02 Patient required multiple doses of morphine, a dose of Toradol, and was also given Ceftriaxone IV. On exam, patient reports pain is finally settling down. no chest pain, dyspnea, palpitations, dizziness no other symptoms Principal Diagnosis obstructive uropathy 2/2 stone s/p right ureteral stent placement Discharge Exam CONSTITUTIONAL: WNWD, vitals as above, generally well-appearing, NAD EYES: normal conjunctivae, no scleral icterus, ENT: external ear and nose normal, MMM NECK: trachea midline, RESPIRATORY: clear to auscultation bilaterally, no crackles, rales or wheezes, normal respiratory effort CARDIOVASCULAR: regular rate and rhythm, S1 and 2 heard without murmurs, gallops or rubs, no JVD, no peripheral edema, CHEST: inspection of chest was normal GASTROINTESTINAL: normal bowel sounds, soft, nontender, no guarding, no CVA tenderness MUSCULOSKELETAL: strength 5/5 throughout, head is normocephalic and atraumatic SKIN: warm and dry, NEUROLOGIC: CN 2-12 grossly intact, no sensory deficit, normal cognition, normal speech, no tremor PSYCHIATRIC: alert cooperative and oriented to person, place and time. Discharge Data Allergies Allergy/AdvReac Type Severity Reaction Status Date / Time aspirin AdvReac Intermediate SHAKEY Verified 03/16/22 18:41 Consultations 03/16/22 18:35 ED Decision to Admit Stat 03/16/22 19:32 Consult Urology Routine Procedures Performed Operation Date: 03/17/22 14:30 Actual Procedures p Cystoscopy Right Stent Placement(Right) - Pipe Brown MD Ordered Studies 03/16/22 15:40 CT abd pelvis wo con Stat 03/17/22 11:32 FL KUB Routine Hospital Course (1) Ureteral stone with hydronephrosis: Plan 61-year-old female presented with new onset right ureteral stone causing pain. She was admitted to medicine and urology was consulted. Initially she was doing well and 3 mm stone was thought to be able to pass without issue. White blood cell count was 21 and decreased is 13.8 the following day. However she had another wave of severe renal colic on March 17 and was taken for stent placement into the right ureter. There was a drainage of a slightly purulent urine through and around the stent. There was no evidence of urinary tract infection or acute kidney injury. Post stent she recovered well overnight and had no dysuria or other pain. She did have some hematuria that was expected postprocedure. She will follow-up with urology in the next couple of weeks for definitive stone management. She was discharged in stable condition on Flomax. Total Time Total Time Spent Total Time Spent (In Minutes): 60 Discharge Plan Discharge Items Patient Disposition: Home - Self-Care Reason For Visit: R URETERAL STONE, POSSIBLE UTI Discharge Diagnosis: obstructive uropathy 2/2 stone s/p right ureteral stent placement Activity: Resume your previous activity Non-emergency contact: Primary Care Provider and Urologist Call non-emergency contact if: you have any medication questions, your symptoms worsen, your pain is not controlled, your pain is worsening, your pain is unusual for you, your pain is concerning for you and your temperature is above 101.5 Follow-up/Referrals: Dylon Freeman, [Primary Care Provider] - Diet: Regular Addtl Attending Provider Instructions: Please take all medications as prescribed and keep all follow-ups as scheduled. Please call the [facility] Urology office at [phone] with any questions, concerns or need to reschedule appointments for any reason. We are happy to assist you. While you have a ureteral stent in place: Some discomfort is normal. Certain movements may trigger pain or a feeling that you need to urinate. You may also feel mild soreness or pressure before or during urination. These symptoms should go away a few days after the stent is removed. Your urine may be slightly pink or red. This is due to bleeding caused by minor irritation from the stent. This may happen on and off while you have the stent, it is not harmful and is to be expected. Medication to help minimize discomfort or bladder spasms, or to prevent infection may be prescribed. Take this as directed. Drink plenty of fluids to help flush out your urinary tract. If you go home with a catheter, wash with soapy water and a fresh washcloth twice daily. We recommend mild bar soap such as Dial or Dove. How long will you need a stent? An appointment should already be made for you for stent removal, unless directed otherwise. The stent is often taken out after the blockage in the ureter is treated or the ureter has healed. This may take 1-2 weeks, or longer. If a stent is needed for a longer period of time, it may need to be exchanged every few months. Likely prior to your followup appointment you will be asked to get an X-ray, ple ase complete this the night before or morning of your appointment. When to call [facility] Urology at [phone]: Your urine contains heavy blood clots You are constantly leaking urine Fever of 101F or higher, chills, nausea, or vomiting Your pain is not relieved with medication The end of the stent comes out of your urethra It is always recommended to consider follow-up with your primary care provider within one week of discharge from the hospital. Please make an appointment with your PCP for this time to touch base. It was a pleasure taking care of you! Please call if you have any questions or problems. You can reach a [facility] hospitalist on duty at [facility] 24 hours a day by calling [phone]. Take care of yourself. Abida Norton DO [facility] Pending Studies at Discharge: No Stand-Alone Forms: My [facility] Medications and DC Order Prescriptions: New tamsulosin 0.4 mg Capsule 0.4 mg PO HS Qty: 30 0RF naproxen 500 mg tablet 500 mg PO Q12H PRN (Reason: pain/headache) Qty: 20 0RF Continued lisinopril 10 mg tablet 10 mg PO DAILY cholecalciferol (vitamin D3) [Vitamin D3] 50 mcg (2,000 unit) Capsule 50 mcg PO DAILY Discharge Orders: Discharge Order (Routine); Ordered 03/18/22 Ordered By: Abida Norton Admission Data Admit Date/Time: 03/16/22 19:32 Attending Provider: Abida Norton Admit Provider: Panlilio,Mukesh A. Primary Care Provider: Dylon Freeman Other Providers: Mukesh Vogt ; Pipe Brown Other Interventions: Discharge Summary Assessment (RN) Last Done: 03/18/22 12:43
--- NOTE | 2022-03-18 09:35 | Urology Progress Note ---
Date of Service March 18, 2022 Assessment & Plan (1) Ureteral stone with hydronephrosis: Plan: Doing well s/p right ureteral stent placement Lab work is reassuring, low suspicion for infection. Should be okay for discharge home today from urology perspective Urology will arrange outpatient follow-up for definitive stone management Will sign off for now, please call with any questions or concerns. Admission and Anticipated Discharge Date Admission Date: March 16, 2022 Subjective 61-year-old female, postop day 1 from right ureteral stent placement She denies any fevers or chills She reports urinary frequency but is tolerating the stent otherwise well. She is not having any residual kidney stone pain Review of Systems Constitutional: No fevers chills Respiratory: Breathing comfortably on room air, no audible wheezing Physical Exam Physical Exam: Well-appearing, NAD Results & Data ([facility]) Vital Signs (Past 12 Hours) Vital Signs Temp Pulse Resp BP Pulse Ox O2 Del Method 03/18/22 07:50 36.5 C 85 16 154/93 H 96 Room Air 03/18/22 03:00 36.6 C 79 18 136/81 95 Room Air PG Care Time/CCT Total # of Minutes Spent Total Time Spent with Patient: Total time spent is greater than 50% in coordination of care (as documented) at patient's floor/unit and/or counseling patient: Coding Level of Care Code 87350 Subseq Hosp Care Lvl 2 Diagnoses Ureteral stone with hydronephrosis N13.2
[2022-03-18] MEDS ORDERED: BUTALBITAL/ACETAMIN/CAFFEINE TAB PO STA (09:56)
== END 2022-03-18 13:06 | disposition home or self-care (01) | DRG 661 ==
LOC: ED 15:23 → SUATTDRO 19:32 → 3E 19:32
DX: N13.2 Hydronephrosis with renal and ureteral calculous obstruction; Z79.82 Long term (current) use of aspirin; I10 Essential (primary) hypertension